=== PATIENT | female | born 1990 ===

== ENCOUNTER 2016-07-10 00:46 | Emergency (ER) | payer OTHER ==
[2016-07-10 00:47] VITALS: BMI 30.5
[2016-07-10 00:55] VITALS: BP 128/79; PULSE 103; RESP 14; TEMP 99.2; O2SAT 100
--- NOTE | 2016-07-10 01:24 | ED PDOC ---
Lower Extremity Pain/Injury History Per: Patient Onset/Duration Of Symptoms: Hrs (1.5) Additional Complaint(s): 26F p/w a mechanical slip and fall at home approximately 1.5hrs prior to arrival while carrying her child causing her to land on bent LEFT knee. Pt denies any associated dizziness, SOB, palpitations prior to fall denies striking any other body part. PMH: None PSH: None Allergies: NKDA Smoke: No - Knee Description Of Injury: Fell (Was holding her 2yo child and landed directly onto bent LEFT knee to floor) Knee: 1 - LEFT: Swelling, non-erythematous, no fluctuance, ?displacement <Estrella Hernandez - Last Filed: 07/10/16 04:42> <Alcides White Y - Last Filed: 07/10/16 06:10> Time Seen by Provider: 07/10/16 00:58 Chief Complaint (Nursing): Lower Extremity Problem/Injury Past Medical History Vital Signs: Last Vital Signs Temp 37.3 C 07/10/16 00:52 Pulse 103 H 07/10/16 00:52 Resp 14 07/10/16 00:52 BP 128/79 07/10/16 00:52 Pulse Ox 100 07/10/16 00:52 - Medical History PMH: Denies: Depression, Chronic Kidney Disease - Family History Family History: States: Unknown Family Hx - Immunization History Hx Tetanus Toxoid Vaccination: No Hx Influenza Vaccination: No Hx Pneumococcal Vaccination: No <Estrella Hernandez - Last Filed: 07/10/16 04:42> Vital Signs: Last Vital Signs Temp 99.2 F 07/10/16 00:52 Pulse 103 H 07/10/16 00:52 Resp 14 07/10/16 00:52 BP 128/79 07/10/16 00:52 Pulse Ox 100 07/10/16 03:16 <Alcides White - Last Filed: 07/10/16 06:10> - Home Medications Home Medications: Ambulatory Orders Medication Instructions Recorded Nitrofurantoin Macrocrystals 1 cap PO BID #10 cap 10/10/15 [Macrobid] Multivit/Folic Acid/I 1 tab PO DAILY #30 tab 10/10/15 [ Plus] Pnv No.95/Ferrous Fum/Folic AC 1 tab PO DAILY 04/24/16 [ Vitamin Tablet] oxyCODONE/Acetaminophen [Percocet 1 tab PO Q6H PRN #5 tab 07/10/16 5/325 mg Tab] - Allergies Allergies/Adverse Reactions: Allergies Allergy/AdvReac Type Severity Reaction Status Date / Time No Known Allergies Allergy Verified 07/19/14 07:28 Wells Criteria for PE - Wells Criteria for Pulmonary Embolism Clinical Signs and Symptoms of DVT: No P.E is #1 Diagnosis, or Equally Likely: No Heart Rate >100: Yes Immobilization at least 3 days;Surgery previous 4 weeks: No Previous, objectively diagnosed PE or DVT: No Hemoptysis: No Malignancy w/treatment within 6 months, or palliative: No (This is a mechanical fall) Total Score: 1.5 <Estrella Hernandez - Last Filed: 07/10/16 04:42> Review of Systems ROS Statement: Except As Marked, All Systems Reviewed And Found Negative Musculoskeletal: Positive for: Other (LEFT knee pain) <Estrella Hernandez - Last Filed: 07/10/16 04:42> Physical Exam - Physical Exam Appears: Positive for: Well, Non-toxic, Uncomfortable Head Exam: Positive for: ATRAUMATIC, NORMAL INSPECTION Skin: Positive for: Warm, Dry Eye Exam: Positive for: EOMI, PERRL Neck: Positive for: Normal, Supple Cardiovascular/Chest: Positive for: Regular Rate, Rhythm. Negative for: JVD, Murmur Respiratory: Positive for: Normal Breath Sounds. Negative for: Rales, Wheezing Pulses-Dorsalis Pedis (L): 2+ Pulses-Post. Tibialis (L): 2+ Gastrointestinal/Abdominal: Positive for: Bowel Sounds, Soft. Negative for: Tenderness Extremity: Positive for: Tenderness (LEFT knee), Capillary Refill (<3s), Deformity (LEFT knee, non-fluctuant mass, displaced). Negative for: Normal ROM (Passive extension), Pedal Edema, Calf Tenderness Neurologic/Psych: Positive for: Alert. Negative for: Motor/Sensory Deficits <Estrella Hernandez - Last Filed: 07/10/16 04:42> - Laboratory Results Result Diagrams: 07/10/16 01:50 07/10/16 01:50 - ECG O2 Sat by Pulse Oximetry: 100 <RaginiandrewEstrella - Last Filed: 07/10/16 04:42> - Laboratory Results Result Diagrams: 07/10/16 01:50 07/10/16 01:50 <Alcides White Y - Last Filed: 07/10/16 06:10> Medical Decision Making Medical Decision Making: Initially suspected LEFT knee patellar pathology effusion vs. fracture - LEFT knee x-rays - cbc, bmp, PT/INR, PTT, bhCG, T&S - NPO, IVF - Pain medication - Upreg - Knee Immobilizer Discussed case with Dr Rodriguez @ 0245 who recommended toe to groin rose wrap with knee immobilizer and follow up in the office tomorrow. <RaginiEstrella morales - Last Filed: 07/10/16 04:42> Medical Decision Makin: Patient with patellar fracture s/p fall. As per Dr. Rodriguez, will place patient in knee immobilizer and f/u tomorrow in the office. <Alcides White Y - Last Filed: 07/10/16 06:10> Disposition - Patient ED Disposition Is Patient to be Admitted: No Discussed With : Hans Rodriguez III Comment: Toe to groin rose wrap and knee immobilizer. Call office in the AM. Doctor Will See Patient In The: Office Counseled Patient/Family Regarding: Studies Performed, Diagnosis, Need For Followup, Rx Given - Disposition Disposition: Routine/Home Disposition Time: 03:16 <RaginiandrewMelissaEstrella - Last Filed: 07/10/16 04:42> <Alcides White Y - Last Filed: 07/10/16 06:10> - Clinical Impression Clinical Impression: Patellar fracture - Disposition Referrals: Hans Rodriguez III, MD [Staff Provider] - (Call 07/10/2016) Condition: STABLE Additional Instructions: call Dr Rodriguez office today for appointment today for patellar fracture return to the ED with any worsening or concerning symptoms. Prescriptions: oxyCODONE/Acetaminophen [Percocet 5/325 mg Tab] 1 tab PO Q6H PRN #5 tab PRN Reason: Pain, Moderate (4-7) Instructions: Crutch Instructions (ED), Patellar Fracture (ED), Knee Immobilizer (ED)
[2016-07-10 02:16] LABS: HEMATOCRIT 31.5 % (34.0-47.0); MEAN CELL VOLUME 72.4 fl (81.0-99.0); MEAN CORPUSCULAR HEMOGLOBIN 22.9 pg (27.0-31.0); MEAN CORPUSCULAR HGB CONC 31.6 g/dL (33.0-37.0); RED CELL DISTRIBUTION WIDTH 16.9 % (11.5-14.5); WHITE BLOOD COUNT 15.4 K/uL (4.8-10.8)
[2016-07-10 02:24] LABS: BLOOD UREA NITROGEN 12 mg/dl (7-17); CALCIUM 9.5 mg/dL (8.4-10.2); CARBON DIOXIDE 23 mmol/L (22-30); CHLORIDE 104 mmol/L (98-107); GFR AFRICAN-AMERICAN > 60; GLUCOSE,RANDOM 138 mg/dL (65-105); POTASSIUM 3.5 MMOL/L (3.6-5.0); SODIUM 140 mmol/l (132-148)
[2016-07-10 03:12] LABS: PARTIAL THROMBOPLASTIN TIME 27.1 SECONDS (23.3-32.5)
--- NOTE | 2016-07-10 10:17 | RAD ---
PROCEDURE: Left knee dated 07/10/2026 HISTORY: Pain. COMPARISON: None. FINDINGS: BONES: Current study reveals a comminuted fracture of the patella with superior and inferior distraction of the of the superior and inferior fracture fragments respectively. There is surrounding soft tissue swelling and a small to medium size suprapatellar joint effusion. JOINTS: Normal. No osteoarthritis. JOINT EFFUSION: As above. OTHER FINDINGS: None. IMPRESSION: Comminuted fracture of the patella with superior and inferior distraction of the fracture fragments as above. Surrounding soft tissue swelling and small to medium size suprapatellar joint effusion.
== END 2016-07-10 04:55 | disposition home or self-care (01) ==
LOC: H.ER 00:46
DX: S82.002A Unspecified fracture of left patella, initial encounter for closed fracture (principal); W19.XXXA Unspecified fall, initial encounter; Y92.008 Other place in unspecified non-institutional (private) residence as the place of occurrence of the external cause

== ENCOUNTER 2016-08-09 06:10 | Observation (INO) | payer OTHER ==
[2016-07-21 08:01] VITALS: BMI 25.6
[2016-08-09 06:48] LABS: BASO # 0.1 K/uL (0.0-0.2); BASO % 0.9 % (0.0-2.0); EOS # 0.2 K/uL (0.0-0.7); EOS % 1.5 % (0.0-4.0); HEMATOCRIT 35.5 % (34.0-47.0); LYMPH % 15.2 % (20.0-40.0); MEAN CELL VOLUME 72.2 fl (81.0-99.0); MEAN CORPUSCULAR HEMOGLOBIN 22.1 pg (27.0-31.0); MEAN CORPUSCULAR HGB CONC 30.6 g/dL (33.0-37.0); MEAN PLATELET VOLUME 7.7 fl (7.2-11.7); MONO # 1.1 K/uL (0.0-0.8); MONO % 8.4 % (0.0-10.0); NEUT # 9.5 K/uL (1.8-7.0); RED CELL DISTRIBUTION WIDTH 17.4 % (11.5-14.5); WHITE BLOOD COUNT 12.9 K/uL (4.8-10.8)
[2016-08-09] MEDS ORDERED: Midazolam 2 MG/2 ML VIAL ONE ×2 (07:48→09:59)
[2016-08-09] MEDS ORDERED: Propofol 10 mg/ml Inj (20 ML) ONE (07:48)
[2016-08-09] MEDS ORDERED: Bupivacaine HCl 0.25% PF (30 ml) Inj ONE (07:49)
[2016-08-09] MEDS ORDERED: Bupivacaine 0.5% Inj(30mL) ONE (08:54)
[2016-08-09] MEDS ORDERED: MethylPREDNISolone Depo 40 mg/ml Inj ONE (08:54)
[2016-08-09] MEDS ORDERED: Lidocaine 1% Inj (20ml) ONE (08:54)
[2016-08-09] MEDS ORDERED: Ropivacaine 0.5% 30ML IV ONE ×2 (09:14→13:48)
[2016-08-09] MEDS ORDERED: Lidocaine 2% Inj (20ml) ONE ×2 (09:15→13:48)
[2016-08-09] MEDS ORDERED: Absorbable Gelatin Sponge Size 100 ONE (09:20)
[2016-08-09] MEDS ORDERED: Lactated Ringer's 1,000 ML IV ONE ×2 (11:00→12:15)
[2016-08-09] MEDS ORDERED: Esmolol 100 mg/10ml Inj IV ONE ×2 (11:26→12:20)
--- NOTE | 2016-08-09 13:03 | PCM.ANESB3 ---
Femoral Nerve Block - Femoral Nerve Block Date of Procedure: 08/09/16 Anesthesiologist: Jose Martin Pre-Procedure Diagnosis: left patella fracture Post-Procedure Diagnosis: same Procedure Performed: Femoral Nerve Block Left - Procedure Femoral Nerve Block: The procedure was explained to the patient that it is for the post-operative pain management. Consent was obtained after a thorough discussion with the patient regarding the benefits and possible complications of local anesthetic block of the femoral nerve at the inguinal crease area. The patient was brought to the operating room and standard monitors were applied. Time-out was held with the circulating nurse to confirm the correct surgery and the appropriate block. After applying oxygen by nasal cannula and administering IV Sedation, patient was placed in supine position with fully extended lower extremities and the groin exposed. The femoral artery was then carefully palpated. The ultrasound transducer was then applied to this area in the transverse plane and the femoral nerve was visualized lateral to the femoral artery and underneath the fascia iliaca. After thorough identification, the inguinal crease area was prepped with Betadine solution three times and 1 % Lidocaine was injected subcutaneously for topical anesthesia. At this point, a #22 gauge Stimuplex 2-inch needle was inserted immediately lateral to the femoral artery pulse at the inguinal crease and advanced perpendicularly. The needle was inserted to the ultrasound transducer in-plane towards the femoral nerve in a [id number] direction. Needle advancement was performed carefully under direct ultrasound visualization. Nerve stimulator was used and twitch of the quadriceps muscle was obtained at current of ___0.4__ MA. After negative aspiration, _15____cc of _0.5____% ___ropivicaine was injected and this was followed with __5____ cc of 2__ % _ lidocaine . Under ultrasound guidance the local anesthetics were observed spreading below fascia iliaca and around the femoral nerve. The needle was removed intact and sterile dressing was applied. The patient had stable vital signs, was conscious and in no apparent distress. The patient tolerated the femoral nerve block well with stable vital signs and was prepared for subsequent surgery.
[2016-08-09] MEDS: HYDROmorphone 0.5 mg/0.5 ml ISec IVP PRN ×4 (13:30→14:55)
--- NOTE | 2016-08-09 15:22 | PCM.SURG1 ---
Surgeon's Initial Post Op Note - Surgeon's Notes Surgeon: Brielle Bending Machine Set Up Operator: JEANINE Escamilla Type of Anesthesia: General Endo Anesthesia Administered By: Dr Keaton Philippe Pre-Operative Diagnosis: Displaced L patella fx Operative Findings: displaced L patella fx Post-Operative Diagnosis: as above Operation Performed: ORIF displaced L patella fx Specimen/Specimens Removed: callous/fibrous tissue Estimated Blood Loss: EBL {In ML}: 35 Blood Products Given: N/A Drains Used: No Drains Post-Op Condition: Good Date of Surgery/Procedure: 08/09/16 Time of Surgery/Procedure: 11:25 ( 10:00 time in room anaesthesia indcution time : 10:00)
--- NOTE | 2016-08-09 15:35 | RAD ---
PROCEDURE: Left Knee Radiographs. HISTORY: COMPARISON: Left knee radiographs performed 07/11/19 FINDINGS: BONES: 2 metallic screws consistent with postsurgical fixation of previously demonstrated comminuted displaced patellar fracture. Limited visualization of the osseous structures appear otherwise intact. JOINTS: No dislocation. JOINT EFFUSION: Small suprapatellar joint effusion. OTHER FINDINGS: Surgical skin omega. Subcutaneous emphysema. IMPRESSION: Findings consistent with recent postsurgical fixation of patellar fracture as above.
[2016-08-09] MEDS ORDERED: Iodixanol 320 MG/ML 100 ML BOTTLE IV ONE (15:48)
[2016-08-09] MEDS ORDERED: Sodium Chloride 0.9% 50 ML IV ONE (15:49)
[2016-08-09] MEDS ORDERED: Metoprolol 1 mg/ml Inj IVP ONE ×2 (15:51→16:05)
[2016-08-09 16:01] LABS: ABG ALLEN TEST YES; ARTERIAL BLOOD GAS HCO3 25.5 mmol/L (21-28); ARTERIAL BLOOD GAS O2 CAPACITY 13.7 mL/dL (16-24); ARTERIAL BLOOD GAS O2 CONTENT 13.6 ML/dL (15-23); ARTERIAL BLOOD GAS PH 7.38 (7.35-7.45); ARTERIAL BLOOD GAS PO2 112 mm/Hg (80-100); ARTERIAL BLOOD HGB O2 SAT 96.2 % (95.0-98.0); CARBOXYHEMOGLOBIN 1.6 % (0.5-1.5); HHB 0.5 % (0.0-5.0); METHEMOGLOBIN 1.7 % (0.0-3.0)
--- NOTE | 2016-08-09 16:14 | CP.PCM.HP ---
History of Present Illness - History of Present Illness History of Present Illness: CC: s/p patellar fracture repair HPI: This is a 26 year old female with no significant medical history fractured her patella when she slipped on water about a month ago. According to report, patient was immobile for about a month, and did not get up other than to go to the bathroom. Patient is s/p patellar repair today with Dr. Hannah. Patient was tachycardic intraoperatively, receiving multiple doses of Esmolol. In PACU patient became tachycardic 130-157, MAP 85 BP 125/69. Pt given lopressor 2.5 mg IVP, ABG EKG CBC BMP coags drawn. CTA neg for PE, radiology recommends ECHO for follow up. Vitals are stable, HR now 118. pt has no other complaints. Robin cp, dyspnea. ROS: per HPI, 12 systems reviewed and negative PMH: denies PSH: denies FH: denies SH: denies tobacco, ETOH, IVDU Meds: as below Allergies: NKDA Vitals: reviewed Exam: GEN: WDWN, alert, cooperative HEENT: NCAT, PERRL, EOMI NECK: supple, no JVD, no lymphadenopathy CARDIAC: +S1S2 RRR LUNG: CTAB No WRR ABD: SOFT NT ND BSX4 NO MASSES NO HSM EXT: +pedal pulses, equal strength NEURO: AAOx3 SKIN warm, dry PSYCH normal mood, normal affect Labs: 08/09/16 06:41 Other labs pending Rads: CTA pending EKG Sinus tachycardia Assessment and Plan: This is a 26 year old female with no significant medical history fractured her patella when she slipped on water about a month ago. According to report, patient was immobile for about a month, and did not get up other than to go to the bathroom. Patient is s/p patellar repair today with Dr. Hannah. Patient was tachycardic intraoperatively, receiving multiple doses of Esmolol. In PACU patient became tachycardic 130-157, MAP 85 BP 125/69. Pt given lopressor 2.5 mg IVP, ABG EKG CBC BMP coags drawn. CTA neg for PE, radiology recommends ECHO for follow up. Vitals are stable, HR now 118. pt has no other complaints. Robin cp, dyspnea. Sinus Tachycardia Lopressor 2.5 mg IVP given with some improvement Start Lopressor 12.5mg Q12 CTA neg for PE ABG normal EKG sinus tachycardia no electrolyte abnormalities WBC elevated likely 2/2 post op ECHO pending LOVENOX per ortho tomorrow Present on Admission - Present on Admission Any Indicators Present on Admission: No Past Patient History - Infectious Disease Hx of Infectious Diseases: None - Tetanus Immunizations Tetanus Immunization: Unknown - Past Medical History & Family History Past Medical History?: No - Past Social History Smoking Status: Never Smoked - CARDIAC Hx Cardiac Disorders: No - PULMONARY Hx Respiratory Disorders: No - NEUROLOGICAL Hx Neurological Disorder: No - HEENT Hx HEENT Problems: No - RENAL Hx Chronic Kidney Disease: No - ENDOCRINE/METABOLIC Hx Endocrine Disorders: No - HEMATOLOGICAL/ONCOLOGICAL Hx Blood Disorders: Yes Hx Anemia: Yes - INTEGUMENTARY Hx Dermatological Problems: No - MUSCULOSKELETAL/RHEUMATOLOGICAL Hx Musculoskeletal Disorders: No - GASTROINTESTINAL Hx Gastrointestinal Disorders: No - GENITOURINARY/GYNECOLOGICAL Hx Genitourinary Disorders: No - PSYCHIATRIC Hx Emotional Abuse: No Hx Physical Abuse: No - SURGICAL HISTORY Hx Surgeries: Yes Hx Dilation and Curettage: Yes Hx Hysterectomy: No - ANESTHESIA Hx Anesthesia: Yes Hx Anesthesia Reactions: No Hx Malignant Hyperthermia: No Has any member of the family had a problem w/ anesthesia?: No Meds Allergies/Adverse Reactions: Allergies Allergy/AdvReac Type Severity Reaction Status Date / Time No Known Allergies Allergy Verified 07/19/14 07:28 Results - Vital Signs Recent Vital Signs: Last Vital Signs Temp 98.1 F 08/09/16 14:10 Pulse 125 H 08/09/16 14:25 Resp 18 08/09/16 14:25 BP 125/69 08/09/16 14:25 Pulse Ox 95 08/09/16 14:25 - Labs Result Diagrams: 08/09/16 16:30 08/09/16 14:50 Labs: Laboratory Results - last 24 hr 08/09/16 08/09/16 06:41 15:56 WBC 12.9 H RBC 4.91 Hgb 10.9 L Hct 35.5 MCV 72.2 L MCH 22.1 L MCHC 30.6 L RDW 17.4 H Plt Count 509 H MPV 7.7 Neut % (Auto) 74.0 Lymph % (Auto) 15.2 L [place] % (Auto) 8.4 Eos % (Auto) 1.5 Baso % (Auto) 0.9 Neut # 9.5 H Lymph # 2.0 [place] # 1.1 H Eos # 0.2 Baso # 0.1 pCO2 44 pO2 112 H HCO3 25.5 ABG pH 7.38 ABG Total CO2 27.4 ABG O2 Saturation 99.5 H ABG O2 Content 13.6 L ABG Base Excess 0.7 ABG Hemoglobin 9.9 L ABG Carboxyhemoglobin 1.6 H POC ABG HHb (Measured) 0.5 ABG Methemoglobin 1.7 ABG O2 Capacity 13.7 L Des Test Yes A-a O2 Difference 33.0 Hgb O2 Saturation 96.2 FiO2 28.0
--- NOTE | 2016-08-09 16:27 | RAD ---
PROCEDURE: Intraoperative Fluoroscopy. HISTORY: LEFT KNEE FINDINGS: Fluoroscopic assistance was provided for internal fixation left patellar fracture.. Please refer to the operative report from
[2016-08-09 16:50] LABS: BASO # 0.1 K/uL (0.0-0.2); BASO % 0.3 % (0.0-2.0); EOS % 0.1 % (0.0-4.0); HEMATOCRIT 31.1 % (34.0-47.0); LYMPH # 1.3 K/uL (1.0-4.3); LYMPH % 5.3 % (20.0-40.0); MEAN CELL VOLUME 72.1 fl (81.0-99.0); MEAN CORPUSCULAR HEMOGLOBIN 22.5 pg (27.0-31.0); MEAN CORPUSCULAR HGB CONC 31.2 g/dL (33.0-37.0); MEAN PLATELET VOLUME 7.7 fl (7.2-11.7); MONO # 1.3 K/uL (0.0-0.8); MONO % 5.3 % (0.0-10.0); NEUT # 21.5 K/uL (1.8-7.0); PLATELET COUNT 449 K/uL (130-400); RED CELL DISTRIBUTION WIDTH 17.8 % (11.5-14.5); WHITE BLOOD COUNT 24.2 K/uL (4.8-10.8)
[2016-08-09 17:08] LABS: ALB/GLOB RATIO 1.2 (1.0-2.1); ALKALINE PHOSPHATASE 93 U/L (38-126); ALT/SGPT 37 U/L (9-52); AST/SGOT 30 U/L (14-36); BILIRUBIN,TOTAL 0.4 mg/dl (0.2-1.3); BLOOD UREA NITROGEN 12 mg/dl (7-17); CALCIUM 8.9 mg/dL (8.4-10.2); CARBON DIOXIDE 25 mmol/L (22-30); CHLORIDE 105 mmol/L (98-107); GFR AFRICAN-AMERICAN > 60; GLUCOSE,RANDOM 93 mg/dL (65-105); POTASSIUM 3.7 MMOL/L (3.6-5.0); SODIUM 138 mmol/l (132-148); TOTAL PROTEIN 6.8 G/DL (6.3-8.2)
--- NOTE | 2016-08-09 17:13 | CT ---
Angio CT chest PE protocol Indication: r/o PE, pt. sinus tachycardia Technique: Contiguous axial images were obtained through the chest with intravenous contrast enhancement. Sagittal and coronal reconstructions were generated and reviewed. This CT exam was performed using 1 or more of the falling dose reduction techniques: Automated exposure control, adjustment of the MAA and/or kV according to patient size, and/or use of iterative reconstruction technique. IV Contrast: 80 mL Visipaque 320 Radiation dose (DLP): 332.64 MGy-cm. Comparison: None available. Findings: Visualized portions of the inferior thyroid gland appear unremarkable. The mediastinal and hilar vascular structures appear within normal limits. The heart appears within normal limits of size. Hypodensity within the right atrium is favored to reflect admixture artifact rather than thrombus. No large central or segmental pulmonary embolus evident. No focal consolidation. No pleural effusion. No pneumothorax. No suspicious pulmonary nodules measuring greater than 5 mm. Limited visualization of the upper abdomen appears grossly unremarkable. No acute osseous abnormality is detected. Impression: No large central or segmental pulmonary embolus identified. Hypodensity within the right atrium is favored to reflect admixture artifact rather than thrombus. Recommend correlation with echocardiogram.
[2016-08-09 18:07] LABS: NEUTROPHIL 83 % (42-75); TOTAL CELLS COUNTED 100
[2016-08-09] MEDS: ceFAZolin 1 GM in Sodium Chloride 0.9% 100 ML IVPB SCH (20:41)
[2016-08-10 05:46] LABS: HEMATOCRIT 30.8 % (34.0-47.0); MEAN CELL VOLUME 71.8 fl (81.0-99.0); MEAN CORPUSCULAR HEMOGLOBIN 22.7 pg (27.0-31.0); MEAN CORPUSCULAR HGB CONC 31.6 g/dL (33.0-37.0); RED CELL DISTRIBUTION WIDTH 18.1 % (11.5-14.5); WHITE BLOOD COUNT 12.9 K/uL (4.8-10.8)
[2016-08-10 07:05] LABS: BLOOD UREA NITROGEN 10 mg/dl (7-17); CALCIUM 8.7 mg/dL (8.4-10.2); CARBON DIOXIDE 23 mmol/L (22-30); CHLORIDE 105 mmol/L (98-107); GFR AFRICAN-AMERICAN > 60; GLUCOSE,RANDOM 96 mg/dL (65-105); POTASSIUM 3.9 MMOL/L (3.6-5.0); SODIUM 138 mmol/l (132-148)
[2016-08-10] MEDS: ceFAZolin 1 GM in Sodium Chloride 0.9% 100 ML IVPB SCH (08:15)
--- NOTE | 2016-08-10 09:38 | US ---
PROCEDURE: Bilateral lower extremity venous duplex Doppler. HISTORY: DVT? COMPARISON: Not available TECHNIQUE: Bilateral common femoral, superficial femoral, popliteal and posterior tibial veins were evaluated. Flow was assessed with color Doppler, compressibility, assessment of phasic flow and augmentation response. FINDINGS: COMMON FEMORAL VEIN: Right CFV: Unremarkable. Left CFV: Unremarkable. SUPERFICIAL FEMORAL VEIN: Right SFV: Unremarkable. Left SFV: Unremarkable. POPLITEAL VEIN: Right Popliteal: Unremarkable. Left Popliteal: Unremarkable. POSTERIOR TIBIAL VEIN: Right PTV: Unremarkable. Left PTV: Unremarkable. OTHER FINDINGS: None. IMPRESSION: No evidence of deep venous thrombosis in the right or left lower extremity. .
--- NOTE | 2016-08-10 09:49 | CP.PCM.DIS ---
Provider - Provider Date of Admission: 08/09/16 15:38 Attending physician: Denise Foster DO Primary care physician: Rose Marie Goldberg MD Consults: Ortho consult PT consult Time Spent in preparation of Discharge (in minutes): 20 Hospital Course - Lab Results Lab Results: Most Recent Lab Values WBC 12.9 K/uL (4.8-10.8) H 08/10/16 05:00 RBC 4.29 Mil/uL (3.80-5.20) 08/10/16 05:00 Hgb 9.7 g/dL (12.0-16.0) L 08/10/16 05:00 Hct 30.8 % (34.0-47.0) L 08/10/16 05:00 MCV 71.8 fl (81.0-99.0) L 08/10/16 05:00 MCH 22.7 pg (27.0-31.0) L 08/10/16 05:00 MCHC 31.6 g/dL (33.0-37.0) L 08/10/16 05:00 RDW 18.1 % (11.5-14.5) H 08/10/16 05:00 Plt Count 414 K/uL (130-400) H 08/10/16 05:00 MPV 7.7 fl (7.2-11.7) 08/09/16 16:30 Neut % (Auto) 89.0 % (50.0-75.0) H 08/09/16 16:30 Lymph % (Auto) 5.3 % (20.0-40.0) L 08/09/16 16:30 [place] % (Auto) 5.3 % (0.0-10.0) 08/09/16 16:30 Eos % (Auto) 0.1 % (0.0-4.0) 08/09/16 16:30 Baso % (Auto) 0.3 % (0.0-2.0) 08/09/16 16:30 Neut # 21.5 K/uL (1.8-7.0) H 08/09/16 16:30 Lymph # 1.3 K/uL (1.0-4.3) 08/09/16 16:30 [place] # 1.3 K/uL (0.0-0.8) H 08/09/16 16:30 Eos # 0.0 K/uL (0.0-0.7) 08/09/16 16:30 Baso # 0.1 K/uL (0.0-0.2) 08/09/16 16:30 Neutrophils % (Manual) 83 % (42-75) H 08/09/16 16:30 Band Neutrophils % 2 % (0-2) 08/09/16 16:30 Lymphocytes % (Manual) 9 % (20-50) L 08/09/16 16:30 Monocytes % (Manual) 6 % (0-10) 08/09/16 16:30 Platelet Estimate Normal (NORMAL) 08/09/16 16:30 Hypochromasia (manual) Slight 08/09/16 16:30 Poikilocytosis (manual Slight 08/09/16 16:30 Anisocytosis (manual) Moderate 08/09/16 16:30 Microcytosis (manual) Moderate 08/09/16 16:30 Tear Drop Cells Slight 08/09/16 16:30 PT 13.2 Seconds (9.8-13.1) H 08/09/16 14:50 INR 1.2 (0.9-1.2) 08/09/16 14:50 APTT 31.0 Seconds (25.6-37.1) 08/09/16 14:50 pCO2 44 mm/Hg (35-45) 08/09/16 15:56 pO2 112 mm/Hg (80-100) H 08/09/16 15:56 HCO3 25.5 mmol/L (21-28) 08/09/16 15:56 ABG pH 7.38 (7.35-7.45) 08/09/16 15:56 ABG Total CO2 27.4 mmol/L (22-28) 08/09/16 15:56 ABG O2 Saturation 99.5 % (95-98) H 08/09/16 15:56 ABG O2 Content 13.6 ML/dL (15-23) L 08/09/16 15:56 ABG Base Excess 0.7 mmol/L (-2.0-3.0) 08/09/16 15:56 ABG Hemoglobin 9.9 g/dL (11.7-17.4) L 08/09/16 15:56 ABG Carboxyhemoglobin 1.6 % (0.5-1.5) H 08/09/16 15:56 POC ABG HHb (Measured) 0.5 % (0.0-5.0) 08/09/16 15:56 ABG Methemoglobin 1.7 % (0.0-3.0) 08/09/16 15:56 ABG O2 Capacity 13.7 mL/dL (16-24) L 08/09/16 15:56 Des Test Yes 08/09/16 15:56 A-a O2 Difference 33.0 mm/Hg 08/09/16 15:56 Hgb O2 Saturation 96.2 % (95.0-98.0) 08/09/16 15:56 FiO2 28.0 % 08/09/16 15:56 Sodium 138 mmol/l (132-148) 08/10/16 05:00 Potassium 3.9 MMOL/L (3.6-5.0) 08/10/16 05:00 Chloride 105 mmol/L (98-107) 08/10/16 05:00 Carbon Dioxide 23 mmol/L (22-30) 08/10/16 05:00 Anion Gap 13 (10-20) 08/10/16 05:00 BUN 10 mg/dl (7-17) 08/10/16 05:00 Creatinine 0.6 mg/dL (0.7-1.2) L 08/10/16 05:00 Est GFR ( Amer) > 60 08/10/16 05:00 Est GFR (Non-Af Amer) > 60 08/10/16 05:00 Random Glucose 96 mg/dL (65-105) 08/10/16 05:00 Calcium 8.7 mg/dL (8.4-10.2) 08/10/16 05:00 Total Bilirubin 0.4 mg/dl (0.2-1.3) 08/09/16 14:50 AST 30 U/L (14-36) 08/09/16 14:50 ALT 37 U/L (9-52) 08/09/16 14:50 Alkaline Phosphatase 93 U/L (38-126) 08/09/16 14:50 Total Protein 6.8 G/DL (6.3-8.2) 08/09/16 14:50 Albumin 3.7 g/dL (3.5-5.0) 08/09/16 14:50 Globulin 3.1 gm/dL (2.2-3.9) 08/09/16 14:50 Albumin/Globulin Ratio 1.2 (1.0-2.1) 08/09/16 14:50 TSH 3rd Generation 5.00 mIU/ML (0.46-4.68) H 08/09/16 18:00 - Hospital Course Hospital Course: 26 year old female with no significant medical history fractured her patella when she slipped on water about a month ago. According to report, patient was immobile for about a month, and did not get up other than to go to the bathroom. Patient is s/p patellar repair 08/10/[address] aHnnah. Patient was tachycardic intraoperatively, receiving multiple doses of Esmolol. In PACU patient became tachycardic 130-157, MAP 85 BP 125/69. Pt given lopressor 2.5 mg IVP, and placed under observation in telemetry for Sinus tachycardia.She wsa started on lopressor 12.5 mg po BID . Her chest CTA showed no PE, venous doppler showed no DVT and Echo showed no abnormalities. Her blood work up -- wnl Her tachycardia improved with lopressor 12.5 mg po bid Patient complaining of pain to her left knee . PT consulted and patient trained to use crutches and non weight bearing to LLE. Will order wrollong walker, bedside comode and home physical therapy. Will discharge patient home on percoset PRN and follow up with / Brielle in 1 week 1.Sinus Tachycardia unclear etiology Work up showed no acute pathology Continue lopressor 12.5 mg po BId x 1 week than follow up with Dr. Hannah 2. Left patellar fracture s/p ORIF Complains of pain Pt eval appreciated.Crutches training provided Continue pain management as out patient Non weight bearing to LLe, toe touch Follow up with Dr. Hannah in 1 week Bedside comode , walker and crutches outpatient PT ASA for DVt prophylaxis Discharge Exam - Head Exam Head Exam: ATRAUMATIC, NORMAL INSPECTION, NORMOCEPHALIC - Eye Exam Eye Exam: EOMI, Normal appearance, PERRL Pupil Exam: NORMAL ACCOMODATION - ENT Exam ENT Exam: Mucous Membranes Moist, Normal Exam - Neck Exam Neck exam: Full Rom, Normal Inspection - Respiratory Exam Respiratory Exam: Clear to PA & Lateral, NORMAL BREATHING PATTERN. absent: Rales, Rhonchi, Wheezes - Cardiovascular Exam Cardiovascular Exam: REGULAR RHYTHM, RRR, +S1, +S2. absent: JVD - GI/Abdominal Exam GI & Abdominal Exam: Normal Bowel Sounds, Soft. absent: Distended, Guarding, Rebound, Tenderness - Rectal Exam Rectal Exam: Deferred - Extremities Exam Extremities exam: normal capillary refill, normal inspection, pedal pulses present Additional comments: Left knee dressing intact - Back Exam Back exam: NORMAL INSPECTION - Neurological Exam Neurological exam: Alert, CN II-XII Intact, Oriented x3 - Psychiatric Exam Psychiatric exam: Normal Affect, Normal Mood - Skin Skin Exam: Dry, Normal Color, Warm Discharge Plan - Discharge Medications Prescriptions: Aspirin [Aspirin EC] 325 mg PO DAILY #30 tablet. Metoprolol Tartrate [Lopressor] 12.5 mg PO Q12 #14 tab oxyCODONE/Acetaminophen [Percocet 5/325 mg Tab] 1 ea PO Q4 PRN #30 tab PRN Reason: Pain, Severe (8-10) - Follow Up Plan Condition: GOOD Disposition: HOME/ ROUTINE Patient education suggested?: Yes Instructions: Supraventricular Tachycardia (DC), Patellar Fracture Repair (DC) Referrals: Rose Marie Goldberg MD [Primary Care Provider] - Hans Hannah III, MD [Staff Provider] -
[2016-08-10] MEDS: Oxycodone/Acetaminophen 5/325 mg Tab PO PRN ×2 (10:39→15:48)
[2016-08-10 11:36] VITALS: O2SAT 98
[2016-08-10 12:47] VITALS: RESP 20
[2016-08-10 16:01] VITALS: BP 107/69; PULSE 93; TEMP 98.5
--- NOTE | 2016-08-10 17:00 | CP.PCM.PN ---
Subjective - Date & Time of Evaluation Date of Evaluation: 08/10/16 Time of Evaluation: 04:30 - Subjective Subjective: S- pt with post op incisioNAL DISCOMFORT Objective - Vital Signs/Intake and Output Vital Signs (last 24 hours): Temp Pulse Resp BP Pulse Ox 98.5 F 93 H 20 107/69 98 08/10/16 16:00 08/10/16 16:00 08/10/16 16:00 08/10/16 16:00 08/10/16 16:00 Intake and Output: 08/10/16 08/10/16 06:59 18:59 Intake Total 900 Output Total 1500 Balance -600 - Medications Medications: Current Medications Ketorolac Tromethamine (Toradol) 30 mg IVP Q6 PRN PRN Reason: Pain, severe (8-10) Last Admin: 08/10/16 08:06 Dose: 30 mg Ketorolac Tromethamine (Toradol) 15 mg IVP Q6 PRN PRN Reason: Pain, moderate (4-7) Last Admin: 08/10/16 05:10 Dose: 15 mg Metoprolol Tartrate (Lopressor) 12.5 mg PO Q12 JO Last Admin: 08/10/16 08:16 Dose: 12.5 mg Oxycodone/Acetaminophen (Percocet 5/325 Mg Tab) 1 tab PO Q4 PRN PRN Reason: Pain, severe (8-10) Stop: 08/13/16 09:51 Last Admin: 08/10/16 15:48 Dose: 1 tab - Labs Labs: 08/10/16 05:00 08/10/16 05:00 PT 13.2 Seconds (9.8-13.1) H 08/09/16 14:50 INR 1.2 (0.9-1.2) 08/09/16 14:50 APTT 31.0 Seconds (25.6-37.1) 08/09/16 14:50 - Additional Findings Additional findings: oBJECTIVE ORTHOPEDICALLY STABLE L knee immobilizer intact DR Raymond's note read and appreciated Assessment and Plan - Assessment and Plan (Free Text) Assessment: A- orthopedic ally bstabler s/p ORTIL L patella fx and retiacular repair P- orthopedicallyfor d/c strict 10 p cent mendez bearing with crutches/ walker
--- NOTE | 2016-08-10 23:24 | OP ---
PROCEDURE DATE: 08/09/2016 PREOPERATIVE DIAGNOSIS: Displaced left patella fracture. POSTOPERATIVE DIAGNOSIS: Displaced left patella fracture with rupture, medial and lateral retinaculu m. POSTOPERATIVE DIAGNOSIS: Displaced left patella fracture with injury to the medial and lateral retin aculum. PROCEDURES: 1. ORIF displaced left patellar fracture. 2. Repair medial and lateral retinaculum. 3. Application of long leg knee immobilizer. 4. Positioning of fluoroscope. 5. Interpretation of video images. SURGEON: Dr. Hannah. CHILD AND ADOLESCENT PSYCHIATRIST: Mable Newton, Certified Registered Nursing Supply Chain Systems Manager. ANESTHESIA: General endotracheal anesthesia. COMPLICATIONS: None. DRAINS: No drains. SPECIMENS REMOVED: Callus and fibrous tissue. BLOOD LOSS: 35 mL. BLOOD PRODUCTS: None. No drains. POSTOPERATIVE CONDITION: Stable. DATE OF SURGERY: 08/09/2016. TIME OF SURGERY: Anesthesia induction time 10:00 a.m., incision 11:25. OPERATIVE INDICATION: The patient is a 26-year-old woman who sustained a fracture of the patella tommy roximately a month ago. The patient was scheduled for emergency surgery and had a hematologic proble m. This delayed surgery for approximately 3 weeks. Pros, cons, risks and benefits of surgical appro ach at this time were discussed. The possibility of mechanical failure, infection, thromboembolic di sease, secondary or tertiary surgery is discussed. The concept of stiffness, possible nerve injury i s discussed. OPERATIVE PROCEDURE: After having obtained informed consent in the above fashion, after having ident ified side, site and procedure and a critical pause/timeout, after the satisfactory induction of the anesthetic, the patient identified in the supine position with all bony prominences well padded. The left lower extremity was prepped and free draped in the usual fashion for lower extremity surgery. The tourniquet had been applied, but was not yet inflated. After the satisfactory induction of gener al endotracheal anesthesia by Dr. Philippe after having identified side, site and procedure and a critic al pause/timeout, after the satisfactory induction of the anesthetic, the patient identified in the s upine position with all bony prominences well-padded and the left lower extremity was prepped and ernst e draped in the usual fashion for lower extremity surgery. The tourniquet had been applied, but was not yet inflated. After exsanguinating the limb using a 6-inch Esmarch bandage, the tourniquet, whic h had been applied, was inflated to 350 mmHg. A straight midline approach was made to the knee, 6 in ches. The skin incision was carried down through the skin and subcutaneous tissue to the level of th e extensor mechanism. Great care was taken to leave the flaps thick and medial and lateral flaps wer e elevated. The fracture site was identified. The fracture callus was excised using a combination o f a blade since it was organizing. The fracture is now 4 weeks ago and the fracture surfaces were fr eshened with a patella osteotomy, both at the proximal and distal fragment. This having been accompl ished, the wound was thoroughly irrigated. The fracture was reduced, held with bone-holding clamps. Two wires were placed in parallel with the Arthrex technique. This having been accomplished, drilli ng was accomplished and the 4.0 cannulated screws were introduced. The FiberTape was placed in a fig iul-ke-lypqm fashion and was secure. The position was found to be excellent. The wound was thorough ly irrigated. In this fashion, open reduction internal fixation was accomplished and the medial and lateral retinaculum was repaired using interrupted FiberWire and Vicryl. The wound was thoroughly ir rigated. Closure was in layers with interrupted 0 Quill followed by Vicryl and omega for skin. Ro rocky Navarro compression dressing and knee immobilizer was applied. Postoperative x-rays reveal accept able position of the construct. OPERATIVE PROCEDURES: 1. ORIF displaced left patellar fracture/delayed union. 2. Patella osteotomy. 3. Primary repair, medial and lateral retinaculum. 4. Application of Herbie Navarro compression dressing and knee immobilizer. 5. Positioning of fluoroscope, interpretation of video images. SURGEON: Dr. Hannah. CHILD AND ADOLESCENT PSYCHIATRIST: Mable Newton. It should be noted that the administrative assistant, Mable Newton, is essent ial to the completion of this operative procedure. Hans Hannah MD cc: [id number] TT: 08/10/2016 23:23:24 nh
--- NOTE | 2016-08-11 07:24 | CARD ---
APPROVED REPORT EKG Measurement Heart [id number] <Conclusion> Sinus tachycardia Low voltage QRS Borderline ECG
--- NOTE | 2016-08-13 15:15 | CARD ---
APPROVED REPORT EXAM: Two-dimensional and M-mode echocardiogram with Doppler and color Doppler. Other Information Quality : FairRhythm : 2D DIMENSIONS IVSd0.92 (0.7-1.1cm)LVDd4.09 (3.9-5.9cm) LVOT Diameter1.73 (1.8-2.4cm)PWd0.91 (0.7-1.1cm) IVSs1.28 (0.8-1.2cm)LVDs2.62 (2.5-4.0cm) FS (%) 35.9 %PWs1.29 (0.8-1.2cm) M-Mode DIMENSIONS Left Atrium (MM)3.24 (2.5-4.0cm)IVSd0.66 (0.7-1.1cm) Aortic Root2.86 (2.2-3.7cm)LVDd4.48 (4.0-5.6cm) Aortic Cusp Exc.1.91 (1.5-2.0cm)PWd0.87 (0.7-1.1cm) IVSs1.16 cmFS (%) 38 % LVDs2.77 (2.0-3.8cm)PWs1.33 cm Aortic Valve AoV Peak Cyeqjdje782.4cm/sAoV VTI20.5cmAO Peak GR.5mmHg LVOT Peak Ezecsbdz362.2cm/sLVOT VTI21.84cmAO Mean GR.3mmHg PARAM (VMAX)1.44pn2SUQ (VTI)1.52cm2 Mitral Valve MV E Zqjopbla01.3cm/sMV DECEL [id number] A Jkojykns25.5cm/s MV CVX43neG/A ratio1.2MVA (PHT)4.52cm2 TDI Lateral E' Peak V17.52cm/sMedial E' Peak V17.11cm/sE/Lateral E'4.6 E/Medial E'4.8 Pulmonary Valve PV Peak Kkehomgi09.6cm/s Tricuspid Valve TR Peak Tbxdmxyc039ih/sRAP AKLKRMMB26piIqVN Peak Gr.12mmHg [id number] LEFT VENTRICLE The left ventricle is normal size. There is normal left ventricular wall thickness. The left ventricular function is normal. The left ventricular ejection fraction is within the normal range. The Ejection Fraction is >70%. There is normal LV segmental wall motion. The left ventricular diastolic function is normal. No left ventricle thrombus noted on this study. There is no mass noted in the left ventricle. RIGHT VENTRICLE The right ventricle is normal size. There is normal right ventricular wall thickness. The right ventricular systolic function is normal. ATRIA The left atrium size is normal. The right atrium size is normal. The interatrial septum is intact with no evidence for an atrial septal defect. AORTIC VALVE The aortic valve is normal in structure and function. No aortic regurgitation is present. There is no aortic valvular stenosis. There is no aortic valvular vegetation. MITRAL VALVE The mitral valve is normal in structure and function. There is no evidence of mitral valve prolapse. There is no mitral valve stenosis. There is no mitral valve regurgitation noted. TRICUSPID VALVE The tricuspid valve is normal in structure and function. There is no tricuspid valve regurgitation noted. There is no tricuspid valve prolapse or vegetation. There is no tricuspid valve stenosis. PULMONIC VALVE The pulmonary valve is normal in structure and function. There is no pulmonic valvular regurgitation. There is no pulmonic valvular stenosis. GREAT VESSELS The aortic root is normal in size. The IVC is normal in size and collapses >50% with inspiration. PERICARDIAL EFFUSION The pericardium appears normal. There is no pleural effusion. <Conclusion> The left ventricle is normal size. The left ventricular function is normal. The left ventricular ejection fraction is within the normal range. The Ejection Fraction is >70%.
== END 2016-08-10 18:50 | disposition home or self-care (01) ==
LOC: H.OPSURG 06:10 → H.TEL 15:38
PROVIDERS: ADMIT Student in an Organized Health Care Education/Training Program; ATTEND Student in an Organized Health Care Education/Training Program
DX: S82.002A Unspecified fracture of left patella, initial encounter for closed fracture (principal); W18.40XA Slipping, tripping and stumbling without falling, unspecified, initial encounter; Y93.9 Activity, unspecified; Y92.9 Unspecified place or not applicable; R00.0 Tachycardia, unspecified; L84 Corns and callosities; S83.8X2A Sprain of other specified parts of left knee, initial encounter; S76.112A Strain of left quadriceps muscle, fascia and tendon, initial encounter